=== PATIENT | male | born 1955 | race Caucasian/White ===

== ENCOUNTER → 2018-08-04 13:34 | Outpatient (CLI) | payer OTHER ==
[~2018-08-04 13:34] MED LIST: CARDURA XL4 MG PO; INDERAL LA80 MG PO
== END | disposition home or self-care (01) ==
LOC: LAB 13:34
DX: D68.8 Other specified coagulation defects (principal)

== ENCOUNTER 2018-08-09 07:01 | Outpatient (CLI) | payer OTHER | END 2018-08-09 07:10 | disposition home or self-care (01) | LOC: LAB 07:01 | DX: D68.8 Other specified coagulation defects (principal) ==